=== PATIENT | female | born 1990 | race American Indian/Alaskan Native ===

== ENCOUNTER 2021-10-06 11:50 | Outpatient (CLI) | payer OTHER ==
[2021-10-06 12:26] VITALS: BP 111/76
[2021-10-06] MEDS ORDERED: LACTATED RINGERS 1,000 ML IV ONE (13:25)
--- NOTE | 2021-10-06 13:42 | Ultrasound Report ---
ULTRASOUND OBSTETRIC LIMITED ULTRASOUND BIOPHYSICAL PROFILE INDICATION / CLINICAL INFORMATION: nrnst in office. COMPARISON: None available. FINDINGS: BREATHING MOVEMENT = 2 GROSS BODY MOVEMENT = 2 TONE = 2 QUALITATIVE AMNIOTIC FLUID VOLUME = 2 TOTAL BIOPHYSICAL SCORE = 8/8 HEART RATE (beats per minute): 155 AMNIOTIC FLUID INDEX (cm) = 16.7 (normal = 7-24 cm) PRESENTATION: Cephalic. ADDITIONAL FINDINGS: None. IMPRESSION: 1. Biophysical Score = 8/8 Signer Name: Lakhwinder Chi MD Signed: 10/06/2021 1:38 PM Workstation Name: [email or web address]
== END 2021-10-06 15:03 | disposition home or self-care (01) ==
LOC: TRG 11:50 → APU 11:52 → TRG 15:03
PROVIDERS: ATTEND Obstetrics & Gynecology
DX: Z34.93 Encounter for supervision of normal pregnancy, unspecified, third trimester (principal); Z3A.32 32 weeks gestation of pregnancy
CPT/HCPCS: 59025; 76815; 76819

== ENCOUNTER 2021-11-26 13:21 | Outpatient (CLI) | payer SELFPAY ==
[2021-11-26 14:51] VITALS: BP 113/67
--- NOTE | 2021-11-26 18:24 | Ultrasound Report ---
Biophysical profile Ultrasound HISTORY: wellbeing. TECHNIQUE: Grayscale and color imaging performed. COMPARISON: 10/06/2021 FINDINGS: The fetus received a score of 2 out of 2 for breathing, movement, posture/tone, and MALENA. To jenn score was 8 out of 8. Heart rate during this exam was 153 bpm. IMPRESSION: Normal biophysical profile. Signer Name: Kojo Lambert MD Signed: 11/26/2021 6:19 PM Workstation Name: [id number]
--- NOTE | 2021-11-27 07:25 | Ultrasound Report ---
US OB LIMITED INDICATION / CLINICAL INFORMATION: well-being. MALENA only. COMPARISON: 10/06/21. FINDINGS: There is a single intrauterine in a cephalic presentation. The heart rate is 153 bpm. Amniotic fluid volume is decreased with an MALENA of 5.7 cm. Signer Name: Isma Cobb MD Signed: 11/27/2021 7:20 AM Workstation Name: [id number]
== END 2021-11-26 16:48 | disposition home or self-care (01) ==
LOC: TRG 13:21 → APU 13:23 → TRG 16:48
PROVIDERS: ATTEND Obstetrics & Gynecology
DX: Z34.93 Encounter for supervision of normal pregnancy, unspecified, third trimester (principal); Z3A.40 40 weeks gestation of pregnancy
CPT/HCPCS: 76815; 76819

== ENCOUNTER 2021-11-28 21:54 | Inpatient (IN) | payer OTHER ==
[2021-11-28] MEDS ORDERED: OXYTOCIN 10 UNIT/1 ML INJ IM PRN (23:30)
[2021-11-28] MEDS ORDERED: OXYTOCIN 10 UNIT/1 ML INJ ONE (23:31)
--- NOTE | 2021-11-29 00:19 | History and Physical Report ---
History of Present Illness Date of examination: 11/29/21 Date of admission: 11/28/21 Chief complaint: active labor. History of present illness: Term . Para 2. Past History Past Medical History: no pertinent history - Obstetrical History : 3 Para: 2 Medications and Allergies Allergies Allergy/AdvReac Type Severity Reaction Status Date / Time No Known Allergies Allergy Verified 10/06/21 12:11 Review of Systems All systems: negative Genitourinary: contractions - Physical Exam Lungs: Positive: Normal air movement Genitourinary (Female): Positive: normal external genitalia Vulva: both: normal Vagina: Positive: normal moisture. Negative: discharge Cervix: Negative: lesion, discharge Uterus: Positive: enlarged Anus/Rectum: Positive: normal perianal skin, heme negative. Negative: rectal mass, hemorrhoids Extremities: Positive: normal Deep Tendon Reflex Grade: Normal +2 - Obstetrical FHR: auscultation normal Cervical Dilatation: 10 station: 0+2 Results All other labs normal. Assessment and Plan - Patient Problems (1) Precipitous delivery Current Visit: Yes Status: Acute (2) Term Current Visit: Yes Status: Acute
[2021-11-29] MEDS ORDERED: KETOROLAC 30 MG/1 ML INJ IV PRN (00:21)
[2021-11-29] MEDS ORDERED: ACETAMINOPHEN 325 MG TAB PO PRN (00:21)
[2021-11-29] MEDS ORDERED: PROMETHAZINE 25 MG TAB PO PRN (00:21)
[2021-11-29] MEDS ORDERED: WITCH HAZEL/ GLYCERIN PAD TP PRN (00:21)
[2021-11-29] MEDS ORDERED: LANOLIN/ZINC/DIMETHICONE (LANSINOH) 7 GM TP PRN (00:21)
[2021-11-29] MEDS ORDERED: PROMETHAZINE 25 MG RECT SUPP PR PRN (00:21)
[2021-11-29] MEDS ORDERED: ONDANSETRON 4 MG/2 ML INJ IV PRN (00:21)
[2021-11-29] MEDS ORDERED: MAGNESIUM HYDROXIDE (MOM) ORAL LIQD UDC PO PRN (00:21)
[2021-11-29] MEDS ORDERED: diphenhydrAMINE 25 MG CAP PO PRN (00:21)
--- NOTE | 2021-11-29 00:28 | Procedure Note ---
OB Delivery Note - Delivery Date of Delivery: 11/28/21 Surgeon: DIPTI SAENZ [employer] Driver: ETTA BLACKMAN Estimated blood loss: <100cc - Vaginal Delivery presentation: vertex Delivery position: OA Intrapartum events: none Delivery induction: none Delivery monitor: external FHT, external uterine Route of delivery: Delivery placenta: spontaneous Delivery cord: 3 umbilical vessels Delivery laceration: 1st degree, other (midline) Delivery repair: vicryl Anesthesia: local (10cc 1% lidocaine) - A at 1 minute: 8 at 5 minutes: 9 Infant Gender: Male
[2021-11-29 01:07] LABS: Hematocrit 41.6 % (30.3-42.9); Hemoglobin 13.6 gm/dl (10.1-14.3)
[2021-11-29 04:54] LABS: Hepatitis C Virus Antibody Non-Reactive (NonReactive)
[2021-11-29] MEDS: HYDROcodone/ACETAMINOPHEN 5-325 MG TAB PO PRN ×2 (09:02→17:23)
[2021-11-29 17:00] LABS: Hematocrit 37.3 % (30.3-42.9); Hemoglobin 12.4 gm/dl (10.1-14.3)
--- NOTE | 2021-11-30 10:09 | Progress Note ---
Assessment and Plan - Patient Problems (1) Precipitous delivery Current Visit: Yes Status: Resolved (2) Term Current Visit: Yes Status: Resolved (3) Status post vaginal delivery Current Visit: Yes Status: Acute Plan to address problem: Stable and wants to go home. Subjective - Subjective Date of service: 11/30/21 Principal diagnosis: Status post Vaginal delivery day 1 Interval history: Term . Para 2. Objective - Vital Signs Latest vital signs: Vital Signs Temp Pulse Resp BP BP Pulse Ox Pulse Ox 11/30/21 09:00 98.3 F 104 H 20 122/69 100 11/30/21 07:36 99 11/30/21 00:45 98.5 F 68 20 94/63 97 11/29/21 19:50 99 11/29/21 15:40 98.2 F 102 H 18 104/68 96 11/29/21 11:07 98.7 F 99 H 18 102/62 98 Intake and Output 11/29/21 11/30/21 11/30/21 23:59 07:59 15:59 Intake Total 480 480 240 Balance 480 480 240 Intake: Oral 480 240 Intake, Free Water 480 Other: Total, Intake Amount 240 240 # Voids Void 1 1 1 - Exam Lungs: Present: Normal air movement Abdomen: Present: normal appearance, soft, normal bowel sounds Uterus: Present: normal, firm Extremities: Present: normal Deep Tendon Reflex Grade: Normal +2
--- NOTE | 2021-11-30 10:10 | Discharge Summary ---
Providers - Providers Date of Admission: 11/29/21 00:28 Date of discharge: 11/30/21 Attending physician: DIPTI SAENZ MD Primary care physician: DIPTI SAENZ MD Hospitalization Reason for admission: active labor, IUP at term Delivery: Episiotomy: none Laceration: 1st degree Other procedures: none complications: none Discharge diagnosis: IUP at term delivered baby: male Condition at discharge: Good Disposition: 01 HOME / SELF CARE / HOMELESS - Discharge Diagnoses (1) Precipitous delivery Status: Resolved (2) Term Status: Resolved (3) Status post vaginal delivery Status: Acute Plan - Provider Discharge Summary Activity: routine, no sex for 6 weeks, no heavy lifting 4 weeks, no strenuous exercise Diet: routine Instructions: routine Additional instructions: [] Smoking cessation referral if applicable(refer to patient education folder for contact #) [] Refer to [facility] Booklet Call your doctor immediately for: * Fever > 100.5 * Heavy vaginal bleeding ( >1 pad per hour) * Severe persistent headache * Shortness of breath * Reddened, hot, painful area to leg or breast * Drainage or odor from incision. * Keep incision clean and dry at all times and follow doctor's instructions rega rding bathing/showering - Follow up plan Follow up: DIPTI SAENZ MD [Primary Care Provider] - 7 Days Forms: [facility] Discharge Summary
[2021-11-30] MEDS: HYDROcodone/ACETAMINOPHEN 5-325 MG TAB PO PRN (12:37)
[2021-11-30 16:38] VITALS: BP 114/57
== END 2021-11-30 16:49 | disposition home or self-care (01) | DRG 807 ==
LOC: TRG 21:54 → APU 21:55 → TRG 11-29 00:26 → LD 11-29 00:28 → OB 11-29 02:27
PROVIDERS: ADMIT Obstetrics & Gynecology; ATTEND Obstetrics & Gynecology
PROC: 10E0XZZ Delivery of Products of Conception, External Approach (ICD-10-PCS; principal; 2021-11-28)
PROC: 0HQ9XZZ Repair Perineum Skin, External Approach (ICD-10-PCS; 2021-11-28)
DX: O62.3 Precipitate labor (principal); Z37.0 Single live birth; Z3A.40 40 weeks gestation of pregnancy; Z20.822 Contact with and (suspected) exposure to COVID-19; O70.0 First degree perineal laceration during delivery
CPT/HCPCS: 36415; 76815; 76819; 85014; 85018; 86592; 86706; 86762; 86803; 86850; 86900; 86901; 87806; G0378; J2590; U0003